=== PATIENT | female | born 1960 | race Caucasian/White ===

== ENCOUNTER 2019-10-28 21:46 | Inpatient (IN) | payer MEDICARE, BC ==
[~2019-10-28] VITALS: Ht 154.9 cm; Wt 67.8 kg
[~2019-10-28 21:46] MED LIST: DESI25TA PO; GABA-826 PO; PROM25TA10 PO; SERT100T PO; TEMA15CA PO
--- NOTE | 2019-10-28 22:11 | NUR ---
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 [phone] neurology paged, Dr. Berman to call ERP Dr. Vance.
--- NOTE | 2019-10-28 22:13 | NUR ---
[employer]: Dr. Berman returned called, speaking with Dr. Vance
[2019-10-28 22:25] LABS: BASOPHILS # (AUTO) 0.03 x10^3/uL (0-0.1); BASOPHILS % (AUTO) 0 % (0-1); EOSINOPHILS # (AUTO) 0.17 x10^3/uL (0-0.4); EOSINOPHILS % (AUTO) 2 % (1-7); LYMPHOCYTES # (AUTO) 1.27 x10^3/uL (1-3.4); LYMPHOCYTES % (AUTO) 12 % (22-44); MD NO; MEAN CORPUSCULAR HEMOGLOBIN 32.3 pg (27.0-34.8); MEAN PLATELET VOLUME 7.2 fL (7.4-10.4); MONOCYTES # (AUTO) 0.46 x10^3/uL (0.2-0.8); MONOCYTES % (AUTO) 5 % (2-9); NEUTROPHILS # (AUTO) 8.34 x10^3/uL (1.8-6.8); NEUTROPHILS % (AUTO) 81 % (42-75); PLATELET COUNT 250 x10^3/uL (130-400); RED BLOOD COUNT 4.51 x10^6/uL (3.82-5.3)
--- NOTE | 2019-10-28 22:30 | NUR ---
Pt presents to ed c/o R sided weakness initiating @2130 this pm. Code neuro initiated via henok barron. at bedside immediately. Multiple points of access gained and pt neuro assessed. Pt mild-moderate weakness of RLE and RUE. No facial drop or slurring noted. NIH of 1 annotated by , alcides neuro rn, and this rn. All monitoring applied. Pt bp elevated. aware. Awaiting neuro consult.
[2019-10-28] MEDS ORDERED: OMNIPAQUE 350 MG/ML, 100ML BOTTLE ONE (22:33)
[2019-10-28 22:34] LABS: INTERNATIONAL NORMALIZED RATIO 0.93 (0.93-1.1); PROTHROMBIN TIME 9.8 Seconds (9.6-11.5)
--- NOTE | 2019-10-28 22:40 | NUR ---
Secondary neuro accomplished and neuro is unchanged at this time.
--- NOTE | 2019-10-28 22:53 | NUR ---
Poor connection issues on telerobot on both devices via neurologist. Neurologist exam delayed due to unfortunate circumstance. aware.
--- NOTE | 2019-10-28 23:02 | NUR ---
CONTRACT MANAGEMENT SPECIALIST: DR. HAYWOOD PAGED PER DR. MARTELL
[2019-10-28] MEDS ORDERED: ALTEPLASE 6 MG in SYRINGE 1 EA IVPush ONE (23:30)
[2019-10-28] MEDS ORDERED: ALTEPLASE IV ONE ×2 (23:30)
[2019-10-28] MEDS ORDERED: ALTEPLASE 51 MG in VIAL 1 EACH IV ONE (23:30)
--- NOTE | 2019-10-28 23:35 | NUR ---
Neurologist states tpa necessary and ERP agrees. 3rd access gained in preparation and tpa prepped. Consent signed and w/ .
--- NOTE | 2019-10-28 23:40 | NUR ---
stated to hold off on tpa until consult from neuro, neuro consult states to give tpa. TPA initiated via ERP guideline and Phi Leong at bedside.
--- NOTE | 2019-10-28 23:57 | NUR ---
RECEIVED BS REPORT FROM HAYLEY RICHARDSON TO ASSUME CARE OF PT. TPA INFUSING PER ORDER. ALL MONITORS IN PLACE. AT BS FOR SUPPORT. ALL SAFETY MEASURES OBSERVED.
[2019-10-29] MEDS ORDERED: PROMETHAZINE 25 MG/ML, 1ML IM PRN
[2019-10-29] MEDS ORDERED: LIDODERM 5% PATCH TD PRN
[2019-10-29] MEDS ORDERED: ONDANSETRON 2MG/ML, 2ML IVPush PRN
--- NOTE | 2019-10-29 00:04 | NUR ---
Pt bedside report to Stephani shoemaker. Neuro exam performed and baseline discussed w/ Brianne shoemaker. Pt care tx. TPA infusing appropriately. R forearm has minimal bleeding due to missed iv stick earlier. aware.
[2019-10-29] MEDS ORDERED: GABA800T PO (00:26)
[2019-10-29] MEDS ORDERED: DISO100C3 PO (00:26)
[2019-10-29] MEDS ORDERED: TEMA15CA6 PO (00:26)
[2019-10-29] MEDS ORDERED: TEMA15CA PO (00:26)
[2019-10-29] MEDS ORDERED: SERT100T PO (00:26)
[2019-10-29] MEDS ORDERED: OXYC10TA6 PO (00:28)
[2019-10-29] MEDS ORDERED: LORA-445 PO (00:31)
[2019-10-29] MEDS: SODIUM CHLORIDE 0.9% 1,000 ML IV SCH ×3 (00:48→23:31)
--- NOTE | 2019-10-29 00:50 | NUR ---
PT. STARTED TO C/O OF NEW ONSET SOB AND DIFFICULTY SWALLOWING. PT. DID PASS SWALLOW EVAL AND IS REQUESTING WATER. PT. TOLERATED SIPS OF WATER WITH NO PROBLEM. EKG WAS DONE AND PRESENTED TO ERP/[facility].
--- NOTE | 2019-10-29 01:00 | NUR ---
ASSISTED PT. TO VOID VIA BED MCGINNIS; BED MCGINNIS OVERFLOWED. PT. ABLE TO ROLL SELF FROM SIDE TO SIDE TO ASSIST WITH BEDDING CHANGE AND CLEANSING. NEW GOWN PLACED. PT. NOTED TO HAVE DRY COUGH; STATES HAS HAD THIS FOR A COUPLE DAY.
--- NOTE | 2019-10-29 01:05 | NUR ---
PT. DENIES SENSATION OF SOB OR DIFFICULTY SWALLOWING NOW. PT. SENSATION TO RIGHT ARM/LEG EQUAL TO THAT OF LEFT ARM/LEG. PT. IS A&O X 4 BUT SLOW TO RESPOND. MED REC WAS COMPLETED WITH PT. PT. IS ABLE TO LIFT RIGHT ARM/LEG OFF BED BUT UNABLE TO HOLD UP FOR MORE THAN 5 SECONDS.
--- NOTE | 2019-10-29 01:14 | NUR ---
REPORT TO HAYLEY MCGILL. PT. TO TRANSPORT. TO FLOOR.
[2019-10-29 01:30] VITALS: BP 168/89
[2019-10-29] MEDS ORDERED: ALTEPLASE 1 MG/ML, 100ML ONE (01:45)
[2019-10-29] MEDS: morphine SULFATE 10 MG/ML, 1ML IVPush PRN ×3 (02:49→16:20)
[2019-10-29 04:00] VITALS: BP 169/81
[2019-10-29] MEDS ORDERED: DESI50TA PO (05:48)
[2019-10-29 05:52] LABS: BASOPHILS # (AUTO) 0.04 x10^3/uL (0-0.1); BASOPHILS % (AUTO) 1 % (0-1); EOSINOPHILS # (AUTO) 0.13 x10^3/uL (0-0.4); EOSINOPHILS % (AUTO) 2 % (1-7); LYMPHOCYTES # (AUTO) 0.75 x10^3/uL (1-3.4); LYMPHOCYTES % (AUTO) 10 % (22-44); MD NO; MEAN CORPUSCULAR HEMOGLOBIN 32.2 pg (27.0-34.8); MEAN CORPUSCULAR HGB CONC 33.9 g/dL (32.4-35.8); MEAN CORPUSCULAR VOLUME 95.1 fL (80-100); MEAN PLATELET VOLUME 7.5 fL (7.4-10.4); MONOCYTES # (AUTO) 0.47 x10^3/uL (0.2-0.8); MONOCYTES % (AUTO) 6 % (2-9); NEUTROPHILS # (AUTO) 6.31 x10^3/uL (1.8-6.8); NEUTROPHILS % (AUTO) 82 % (42-75); PLATELET COUNT 226 x10^3/uL (130-400); RED BLOOD COUNT 4.32 x10^6/uL (3.82-5.3); RED CELL DISTRIBUTION WIDTH 12.8 % (9.6-15.2)
[2019-10-29 06:02] LABS: ALBUMIN 3.7 g/dL (3.4-5.0); ANION GAP 8 mmol/L (5-15); CALCIUM 9.5 mg/dL (8.5-10.1); CHLORIDE 106 mmol/L (98-107)
[2019-10-29 06:05] LABS: ALANINE AMINOTRANSFERASE 21 U/L (12-78); ALKALINE PHOSPHATASE 109 U/L (45-117); BILIRUBIN,TOTAL 0.6 mg/dL (0.2-1.0); CHOL/HDL RATIO 5.9; CHOLESTEROL, TOTAL 234 mg/dL (140-239); CREATININE 0.61 mg/dL (0.55-1.02); HDL CHOL % 17 % (28-40); HDL CHOLESTEROL (DIRECT) 40 mg/dL (40-60); LDL CHOLESTEROL,CALCULATED 157 mg/dL (54-169); LDL/HDL RATIO 3.9 (0.5-3.0); TOTAL PROTEIN 7.2 g/dL (6.4-8.2); TRIGLYCERIDES 186 mg/dL (50-200); VLDL CHOLESTEROL 37 mg/dL (0-25)
[2019-10-29] MEDS ORDERED: LABETALOL 5MG/ML, 20ML IV PRN ×2 (10:30)
[2019-10-29] MEDS: ACETAMINOPHEN 325 MG TABLET PO PRN (15:59)
[2019-10-29 17:59] LABS: RAPID INFLUENZA A Negative (Negative); RAPID INFLUENZA B Negative (Negative)
[2019-10-29] MEDS: ATORVASTATIN 80 MG TABLET PO SCH (21:37)
[2019-10-30] MEDS: ACETAMINOPHEN 325 MG TABLET PO PRN ×2 (02:12→15:10)
[2019-10-30 04:00] VITALS: BP 175/96
[2019-10-30 04:58] LABS: BASOPHILS # (AUTO) 0.02 x10^3/uL (0-0.1); BASOPHILS % (AUTO) 0 % (0-1); EOSINOPHILS # (AUTO) 0.04 x10^3/uL (0-0.4); EOSINOPHILS % (AUTO) 1 % (1-7); LYMPHOCYTES # (AUTO) 0.74 x10^3/uL (1-3.4); LYMPHOCYTES % (AUTO) 10 % (22-44); MD NO; MEAN CORPUSCULAR HEMOGLOBIN 32.4 pg (27.0-34.8); MEAN CORPUSCULAR HGB CONC 33.7 g/dL (32.4-35.8); MEAN CORPUSCULAR VOLUME 96.2 fL (80-100); MEAN PLATELET VOLUME 7.3 fL (7.4-10.4); MONOCYTES % (AUTO) 4 % (2-9); NEUTROPHILS # (AUTO) 6.52 x10^3/uL (1.8-6.8); NEUTROPHILS % (AUTO) 86 % (42-75); PLATELET COUNT 203 x10^3/uL (130-400); RED BLOOD COUNT 4.43 x10^6/uL (3.82-5.3)
[2019-10-30 05:09] LABS: ALANINE AMINOTRANSFERASE 16 U/L (12-78); ALBUMIN 3.4 g/dL (3.4-5.0); ANION GAP 7 mmol/L (5-15); CALCIUM 9.4 mg/dL (8.5-10.1); CHLORIDE 106 mmol/L (98-107); CREATININE 0.54 mg/dL (0.55-1.02)
[2019-10-30 05:11] LABS: ALKALINE PHOSPHATASE 101 U/L (45-117); BILIRUBIN,TOTAL 0.5 mg/dL (0.2-1.0); TOTAL PROTEIN 7.1 g/dL (6.4-8.2)
[2019-10-30] MEDS ORDERED: POTASSIUM CHLORIDE 10% 40 MEQ/30 ML UDC PO ONE (09:00)
[2019-10-30] MEDS: SODIUM CHLORIDE 0.9% 1,000 ML IV SCH (12:17)
[2019-10-30] MEDS: ASPIRIN 81 MG TABLET EC PO SCH (15:11)
[2019-10-30] MEDS ORDERED: OXYcodone IR 5MG TABLET PO PRN (15:30)
[2019-10-30] MEDS ORDERED: ENALAPRILAT 1.25 MG/ML, 1ML IV PRN (15:30)
[2019-10-30] MEDS ORDERED: LABETALOL 5MG/ML, 20ML IVPush PRN (15:30)
[2019-10-30] MEDS ORDERED: GABAPENTIN 300 MG CAPSULE PO PRN (15:30)
[2019-10-30] MEDS ORDERED: PROMETHAZINE 25MG TABLET PO PRN (15:30)
[2019-10-30 17:57] VITALS: BP 135/81
[2019-10-30 19:52] VITALS: BP 157/89
[2019-10-30] MEDS: DESIPRAMINE 50 MG PO SCH (20:46)
[2019-10-30] MEDS: SERTRALINE 100MG TABLET PO SCH (20:46)
[2019-10-30] MEDS: LORazepam 0.5MG TABLET PO SCH (20:46)
[2019-10-30] MEDS: ATORVASTATIN 80 MG TABLET PO SCH (20:46)
[2019-10-31 01:26] VITALS: BP 151/82
[2019-10-31] MEDS: ASPIRIN 81 MG TABLET EC PO SCH (05:12)
[2019-10-31 05:43] LABS: BASOPHILS % (AUTO) 0 % (0-1); EOSINOPHILS # (AUTO) 0.01 x10^3/uL (0-0.4); EOSINOPHILS % (AUTO) 0 % (1-7); LYMPHOCYTES # (AUTO) 1.28 x10^3/uL (1-3.4); LYMPHOCYTES % (AUTO) 10 % (22-44); MD NO; MEAN CORPUSCULAR HEMOGLOBIN 32.3 pg (27.0-34.8); MEAN CORPUSCULAR HGB CONC 33.8 g/dL (32.4-35.8); MEAN CORPUSCULAR VOLUME 95.5 fL (80-100); MEAN PLATELET VOLUME 7.8 fL (7.4-10.4); MONOCYTES # (AUTO) 0.37 x10^3/uL (0.2-0.8); MONOCYTES % (AUTO) 3 % (2-9); NEUTROPHILS # (AUTO) 10.81 x10^3/uL (1.8-6.8); NEUTROPHILS % (AUTO) 87 % (42-75); PLATELET COUNT 193 x10^3/uL (130-400); RED BLOOD COUNT 4.51 x10^6/uL (3.82-5.3); RED CELL DISTRIBUTION WIDTH 13.2 % (9.6-15.2)
[2019-10-31 05:47] LABS: CALCIUM 9.7 mg/dL (8.5-10.1); CHLORIDE 99 mmol/L (98-107)
[2019-10-31 05:53] LABS: ALANINE AMINOTRANSFERASE 26 U/L (12-78); ALBUMIN 3.2 g/dL (3.4-5.0); ALKALINE PHOSPHATASE 104 U/L (45-117); ANION GAP 7 mmol/L (5-15); BILIRUBIN,TOTAL 0.8 mg/dL (0.2-1.0); CREATININE 0.82 mg/dL (0.55-1.02); TOTAL PROTEIN 7.3 g/dL (6.4-8.2)
[2019-10-31] MEDS: SERTRALINE 100MG TABLET PO SCH ×2 (08:48→20:41)
[2019-10-31] MEDS: LORazepam 0.5MG TABLET PO SCH ×2 (08:48→20:41)
[2019-10-31 08:53] VITALS: BP 147/85
[2019-10-31 13:28] VITALS: BP 158/89
[2019-10-31] MEDS: ACETAMINOPHEN 325 MG TABLET PO PRN (18:04)
[2019-10-31 19:08] VITALS: BP 164/90
[2019-10-31] MEDS: DESIPRAMINE 50 MG PO SCH (20:41)
[2019-10-31] MEDS: ATORVASTATIN 80 MG TABLET PO SCH (20:41)
[2019-11-01 01:07] VITALS: BP 157/83
[2019-11-01] MEDS: ASPIRIN 81 MG TABLET EC PO SCH (06:02)
[2019-11-01 06:32] LABS: ANION GAP 4 mmol/L (5-15); CHLORIDE 104 mmol/L (98-107)
[2019-11-01 06:34] LABS: CALCIUM 9.7 mg/dL (8.5-10.1); CREATININE 0.58 mg/dL (0.55-1.02)
[2019-11-01 07:51] VITALS: BP 153/89
[2019-11-01] MEDS: ACETAMINOPHEN 325 MG TABLET PO PRN (07:51)
[2019-11-01] MEDS: SERTRALINE 100MG TABLET PO SCH (07:51)
[2019-11-01] MEDS: LORazepam 0.5MG TABLET PO SCH (07:51)
[2019-11-01 08:00] LABS: MEAN CORPUSCULAR HEMOGLOBIN 32.5 pg (27.0-34.8); MEAN CORPUSCULAR HGB CONC 33.7 g/dL (32.4-35.8); MEAN CORPUSCULAR VOLUME 96.3 fL (80-100); MEAN PLATELET VOLUME 7.9 fL (7.4-10.4); PLATELET COUNT 220 x10^3/uL (130-400); RED BLOOD COUNT 4.43 x10^6/uL (3.82-5.3)
[2019-11-01 08:21] LABS: BASOPHILS # (AUTO) 0.01 x10^3/uL (0-0.1); BASOPHILS % (AUTO) 0 % (0-1); EOSINOPHILS # (AUTO) 0.02 x10^3/uL (0-0.4); EOSINOPHILS % (AUTO) 0 % (1-7); LYMPHOCYTES # (AUTO) 1.15 x10^3/uL (1-3.4); LYMPHOCYTES % (AUTO) 14 % (22-44); MD SCAN; MONOCYTES # (AUTO) 0.44 x10^3/uL (0.2-0.8); MONOCYTES % (AUTO) 5 % (2-9); NEUTROPHILS # (AUTO) 6.65 x10^3/uL (1.8-6.8); NEUTROPHILS % (AUTO) 80 % (42-75)
[2019-11-01] MEDS ORDERED: MAGNESIUM HYDROXIDE 8%, 30ML UDC PO PRN (12:30)
[2019-11-01 12:58] VITALS: BP 153/91
[2019-11-01] MEDS ORDERED: BISACODYL 10 MG SUPP ONE (15:42)
[2019-11-01] MEDS ORDERED: BISACODYL 10 MG SUPP PR PRN (16:00)
[2019-11-01] MEDS ORDERED: POTASSIUM CHLORIDE 20 MEQ TAB.ER.PRT PO ONE (16:30)
[2019-11-01] MEDS ORDERED: ATOR-2 PO (16:46)
[2019-11-01] MEDS ORDERED: BISA10SU4 PR (16:46)
[2019-11-01] MEDS ORDERED: LIDO700A20 TD (16:46)
[2019-11-01] MEDS ORDERED: SENN-193 PO (16:46)
[2019-11-01] MEDS ORDERED: ASPI81TA45 PO (16:46)
[2019-11-01] MEDS ORDERED: GABA300C10 PO (16:46)
[2019-11-01] MEDS ORDERED: MAGN400O7 PO (16:46)
[2019-11-01] MEDS ORDERED: ACET325T26 PO (16:46)
[2019-11-01] MEDS ORDERED: SENNA/DOCUSATE TABLET PO SCH (21:00)
== END 2019-11-01 18:23 | disposition short-term general hospital (02) | DRG 62 ==
LOC: ED 23:36 → EDIP 23:40 → CCU 10-29 01:25 → 4EST 10-30 18:00
PROVIDERS: ADMIT Internal Medicine; ATTEND Internal Medicine
DX: I63.9 Cerebral infarction, unspecified (principal); G81.91 Hemiplegia, unspecified affecting right dominant side; E87.1 Hypo-osmolality and hyponatremia; F13.20 Sedative, hypnotic or anxiolytic dependence, uncomplicated; F11.20 Opioid dependence, uncomplicated; I63.89 Other cerebral infarction; E78.5 Hyperlipidemia, unspecified; E87.6 Hypokalemia; F41.9 Anxiety disorder, unspecified; G89.29 Other chronic pain; R29.810 Facial weakness; R47.81 Slurred speech; W18.39XA Other fall on same level, initial encounter; Y93.89 Activity, other specified; Y92.098 Other place in other non-institutional residence as the place of occurrence of the external cause; Y99.8 Other external cause status; Z91.040 Latex allergy status; Z91.048 Other nonmedicinal substance allergy status; Z87.891 Personal history of nicotine dependence; Z79.899 Other long term (current) drug therapy; R29.707 NIHSS score 7
CPT/HCPCS: 36415; 70450; 70496; 70498; 70551; 71045; 80047; 80048; 80053; 80061; 82962; 83735; 84100; 85025; 85610; 85730; 86923; 87081; 87400; 93005; 93306; 96365; 96375; G0378; J2997; Q9967; 92523-GN; J2270; J7030

== ENCOUNTER 2021-03-02 14:24 | Emergency (ER) | payer BC, MEDICARE ==
[~2021-03-02] VITALS: Ht 154.9 cm; Wt 61.4 kg
[~2021-03-02 14:24] MED LIST changes: +ACET325T26 PO; +ASPI81TA45 PO; +ATOR-2 PO; +BISA10SU4 PR; +DESI50TA PO; +DISO100C3 PO; +GABA300C10 PO; +GABA800T PO; +LIDO700A20 TD; +LORA-445 PO; +MAGN400O7 PO; +OXYC10TA6 PO; +SENN-193 PO; +TEMA15CA6 PO
--- NOTE | 2021-03-02 14:59 | NUR ---
VIANNEY LEUNG WAS IN TO SEE PT. PT PLACED BACK IN LOBBY WITH .
[2021-03-02 15:55] LABS: BASOPHILS % (AUTO) 1 % (0-1); EOSINOPHILS % (AUTO) 1 % (1-7); LYMPHOCYTES % (AUTO) 33 % (22-44); MEAN CORPUSCULAR HEMOGLOBIN 32.6 pg (27.0-34.8); MEAN CORPUSCULAR HGB CONC 35.7 g/dL (32.4-35.8); MEAN PLATELET VOLUME 7.4 fL (7.4-10.4); MONOCYTES % (AUTO) 6 % (2-9); NEUTROPHILS % (AUTO) 59 % (42-75); PLATELET COUNT 336 x10^3/uL (130-400); RED BLOOD COUNT 4.53 x10^6/uL (3.82-5.3); RED CELL DISTRIBUTION WIDTH 13.1 % (9.6-15.2)
[2021-03-02 15:57] LABS: MD NO
[2021-03-02 16:07] LABS: ALBUMIN 3.7 g/dL (3.4-5.0); ANION GAP 6 mmol/L (5-15); CALCIUM 10.1 mg/dL (8.5-10.1); CHLORIDE 98 mmol/L (98-107)
[2021-03-02 16:11] LABS: ALANINE AMINOTRANSFERASE 21 U/L (12-78); ALKALINE PHOSPHATASE 84 U/L (45-117); BILIRUBIN,TOTAL 0.3 mg/dL (0.2-1.0); CREATININE 0.93 mg/dL (0.55-1.02); TOTAL PROTEIN 7.4 g/dL (6.4-8.2)
[2021-03-02] MEDS ORDERED: METOCLOPRAMIDE 5 MG/ML, 2ML ONE (16:58)
[2021-03-02] MEDS ORDERED: DIPHENHYDRAMINE 50 MG/ML, 1ML ONE (16:58)
[2021-03-02] MEDS ORDERED: DIPHENHYDRAMINE 50 MG/ML, 1ML IVPush ONE (17:00)
[2021-03-02] MEDS ORDERED: METOCLOPRAMIDE 5 MG/ML, 2ML IVPush ONE (17:00)
[2021-03-02 17:22] LABS: MICROSCOPIC NOT IND
--- NOTE | 2021-03-02 17:30 | NUR ---
TASK RN: PATIENT PLACED ON ELECTRICIAN MAINTENANCE THEN PIV PLACED THEN MEDICATED PER EMAR FOR HEADACHE/ABD PAIN AT 04/17
--- NOTE | 2021-03-02 17:39 | NUR ---
TASK RN: HEADACHE TOTALLY IMPROVED, ABD CRAMPING MOSTLY IMPROVED (FROM 7/10 TO 2/10)
--- NOTE | 2021-03-02 17:40 | NUR ---
TASK RN: TO CT SCAN
[2021-03-02] MEDS ORDERED: OMNIPAQUE 350 MG/ML, 100ML BOTTLE ONE (18:02)
[2021-03-02] MEDS ORDERED: morphine SULFATE 10 MG/ML, 1ML IVPush ONE (18:30)
[2021-03-02] MEDS ORDERED: MORPHINE SULFATE 4 MG/ML, 1ML ONE (18:31)
[2021-03-02 19:05] VITALS: BP 145/81
== END 2021-03-02 19:56 | disposition home or self-care (01) ==
LOC: ED 16:36
DX: A09 Infectious gastroenteritis and colitis, unspecified (principal); R10.32 Left lower quadrant pain; R11.2 Nausea with vomiting, unspecified; R51.9 Headache, unspecified; I10 Essential (primary) hypertension; Z86.73 Personal history of transient ischemic attack (TIA), and cerebral infarction without residual deficits
CPT/HCPCS: 36415; 74177; 80053; 81003; 83690; 85025; 96374; 96375; 99285; J1200; J2270; J2765; Q9967

== ENCOUNTER 2021-04-16 06:48 | Outpatient (CLI) | payer BC, MEDICARE | END 2021-04-16 23:59 | disposition home or self-care (01) | LOC: RAD 06:48 | PROVIDERS: ATTEND Physician Assistant | DX: R11.2 Nausea with vomiting, unspecified (principal); R63.4 Abnormal weight loss; R12 Heartburn; R93.89 Abnormal findings on diagnostic imaging of other specified body structures; K59.00 Constipation, unspecified; R10.30 Lower abdominal pain, unspecified; G81.90 Hemiplegia, unspecified affecting unspecified side; I63.9 Cerebral infarction, unspecified; R85.0 Abnormal level of enzymes in specimens from digestive organs and abdominal cavity | CPT/HCPCS: 74240 ==

== ENCOUNTER 2021-04-19 13:49 | Inpatient (IN) | payer BC, MEDICARE ==
[~2021-04-19] VITALS: Ht 154.9 cm; Wt 59.2 kg
[2021-04-19] MEDS ORDERED: PANT40GR PO (14:18)
[2021-04-19] MEDS ORDERED: LOSA100T14 PO (14:18)
[2021-04-19] MEDS ORDERED: TEMA15CA PO (14:18)
[2021-04-19] MEDS ORDERED: ASPI325T17 PO (14:18)
[2021-04-19] MEDS ORDERED: IBUP200C75 PO (14:18)
[2021-04-19] MEDS ORDERED: [UNRECOGNIZED DRUG - CODE] PO (14:18)
[2021-04-19] MEDS ORDERED: HYDROCHLOROTH12.5 MG PO (14:18)
[2021-04-19] MEDS ORDERED: SERT100T32 PO (14:18)
--- NOTE | 2021-04-19 14:20 | NUR ---
PT BIBA FOR C/O LOWER ABD PAIN X2 MONTHS, PT'S AT BEDSIDE REPORTS PAIN HAS NOT BEEN CONTROLLED, SEEN BY GI AND DIAGNOSED WITH ULCER. PT PLACED ON ALL MONITORS, FALL PRECAUTIONS IN PLACE. CALL LIGHT PLACED WITHIN REACH.
[2021-04-19] MEDS ORDERED: MORPHINE SULFATE 4 MG/ML, 1ML ONE (14:51)
[2021-04-19] MEDS ORDERED: DIPHENHYDRAMINE 50 MG/ML, 1ML ONE (14:51)
[2021-04-19] MEDS ORDERED: METOCLOPRAMIDE 5 MG/ML, 2ML ONE (14:51)
[2021-04-19] MEDS ORDERED: MORPHINE SULFATE 4 MG/ML, 1ML IVPush PRN (15:00)
[2021-04-19] MEDS ORDERED: SODIUM CHLORIDE FLUSH 10ML SYR IVF ONE (15:00)
[2021-04-19] MEDS ORDERED: DIPHENHYDRAMINE 50 MG/ML, 1ML IVPush ONE (15:00)
[2021-04-19] MEDS ORDERED: SODIUM CHLORIDE 0.9% 1,000ML IVBOLUS ONE (15:00)
[2021-04-19] MEDS ORDERED: METOCLOPRAMIDE 5 MG/ML, 2ML IVPush ONE (15:00)
[2021-04-19 15:16] LABS: BASOPHILS % (AUTO) 1 % (0-1); EOSINOPHILS % (AUTO) 1 % (1-7); LYMPHOCYTES % (AUTO) 43 % (22-44); MEAN CORPUSCULAR HEMOGLOBIN 32.7 pg (27.0-34.8); MEAN CORPUSCULAR HGB CONC 36.2 g/dL (32.4-35.8); MEAN PLATELET VOLUME 6.6 fL (7.4-10.4); MONOCYTES % (AUTO) 8 % (2-9); NEUTROPHILS % (AUTO) 47 % (42-75); PLATELET COUNT 346 x10^3/uL (130-400); RED BLOOD COUNT 4.28 x10^6/uL (3.82-5.3); RED CELL DISTRIBUTION WIDTH 12.6 % (9.6-15.2)
[2021-04-19 15:26] LABS: ALANINE AMINOTRANSFERASE 22 U/L (12-78); ALBUMIN 4.1 g/dL (3.4-5.0); ANION GAP 10 mmol/L (5-15); CALCIUM 11.1 mg/dL (8.5-10.1); CHLORIDE 93 mmol/L (98-107); CREATININE 1.16 mg/dL (0.55-1.02)
[2021-04-19 15:28] LABS: ALKALINE PHOSPHATASE 90 U/L (45-117); BILIRUBIN,TOTAL 0.8 mg/dL (0.2-1.0); TOTAL PROTEIN 7.9 g/dL (6.4-8.2)
[2021-04-19] MEDS ORDERED: POTASSIUM CHLORIDE 40 MEQ in SODIUM CHLORIDE 0.9% 500 ML IV ONE (16:00)
--- NOTE | 2021-04-19 18:42 | NUR ---
REPORT TO ERIC HARDY.
[2021-04-19] MEDS ORDERED: POTASSIUM CHLORIDE 20 MEQ TAB.ER.PRT PO ONE (19:00)
[2021-04-19] MEDS ORDERED: LABETALOL 5MG/ML, 20ML IVPush PRN (19:00)
[2021-04-19] MEDS ORDERED: ENOXAPARIN 40 MG/0.4 ML SQ SCH (19:00)
[2021-04-19] MEDS ORDERED: ACETAMINOPHEN 325 MG TABLET PO PRN (19:00)
[2021-04-19] MEDS ORDERED: ONDANSETRON 2MG/ML, 2ML IVPush PRN (19:00)
[2021-04-19] MEDS ORDERED: METOCLOPRAMIDE 5 MG/ML, 2ML IVPush PRN (19:00)
[2021-04-19 19:29] VITALS: BP 130/85
[2021-04-19 19:55] LABS: ANION GAP 4 mmol/L (5-15); CHLORIDE 97 mmol/L (98-107); CREATININE 0.98 mg/dL (0.55-1.02)
[2021-04-19] MEDS: DRONABINOL 5 MG CAPSULE PO SCH (20:13)
[2021-04-19] MEDS ORDERED: MELATONIN 5 MG TABLET PO PRN (21:00)
[2021-04-19] MEDS ORDERED: FAMOTIDINE 20 MG/2 ML IVPush SCH (21:00)
[2021-04-19 21:35] VITALS: BP 145/64
[2021-04-19] MEDS: HYDROmorphone 2 MG/ML, 1ML IVPush PRN ×2 (21:49→22:20)
[2021-04-19 22:20] VITALS: BP 150/87
[2021-04-19 22:41] VITALS: BP 147/82
[2021-04-19] MEDS: POTASSIUM CHLORIDE 20 MEQ in LACTATED RINGERS 1,000 ML IV SCH (22:42)
[2021-04-19 22:58] LABS: ANION GAP 7 mmol/L (5-15); CALCIUM 10.4 mg/dL (8.5-10.1); CHLORIDE 99 mmol/L (98-107); CREATININE 0.97 mg/dL (0.55-1.02)
[2021-04-20 00:41] VITALS: BP 145/93
[2021-04-20] MEDS: HYDROmorphone 2 MG/ML, 1ML IVPush PRN (01:20)
[2021-04-20 02:31] LABS: BASOPHILS % (AUTO) 1 % (0-1); EOSINOPHILS % (AUTO) 1 % (1-7); LYMPHOCYTES % (AUTO) 37 % (22-44); MEAN CORPUSCULAR HEMOGLOBIN 32.1 pg (27.0-34.8); MEAN CORPUSCULAR HGB CONC 34.8 g/dL (32.4-35.8); MEAN PLATELET VOLUME 6.7 fL (7.4-10.4); MONOCYTES % (AUTO) 7 % (2-9); NEUTROPHILS % (AUTO) 54 % (42-75); PLATELET COUNT 336 x10^3/uL (130-400); RED BLOOD COUNT 4.36 x10^6/uL (3.82-5.3); RED CELL DISTRIBUTION WIDTH 12.4 % (9.6-15.2)
[2021-04-20 02:43] LABS: ANION GAP 6 mmol/L (5-15); CALCIUM 10.3 mg/dL (8.5-10.1); CHLORIDE 100 mmol/L (98-107)
[2021-04-20 02:44] LABS: CREATININE 0.99 mg/dL (0.55-1.02)
[2021-04-20 07:06] LABS: ANION GAP 3 mmol/L (5-15); CHLORIDE 104 mmol/L (98-107); CREATININE 1.15 mg/dL (0.55-1.02)
[2021-04-20 07:22] VITALS: BP 105/67
[2021-04-20 07:57] LABS: MICROSCOPIC NOT IND
[2021-04-20] MEDS: POTASSIUM CHLORIDE 20 MEQ in LACTATED RINGERS 1,000 ML IV SCH ×2 (08:20→15:35)
[2021-04-20] MEDS: DRONABINOL 5 MG CAPSULE PO SCH (08:20)
[2021-04-20 14:19] VITALS: BP 131/81
== END 2021-04-20 20:02 | disposition home or self-care (01) | DRG 683 ==
LOC: ED 17:35 → OBSVTOIN 18:12 → INTOOBSV 18:12 → EDIP 18:12 → 4WST 19:12
PROVIDERS: ADMIT Internal Medicine; ATTEND Hospitalist
DX: N17.9 Acute kidney failure, unspecified (principal); E87.1 Hypo-osmolality and hyponatremia; R10.9 Unspecified abdominal pain; E86.1 Hypovolemia; E87.6 Hypokalemia; F12.90 Cannabis use, unspecified, uncomplicated; F19.10 Other psychoactive substance abuse, uncomplicated; G89.29 Other chronic pain; Z86.73 Personal history of transient ischemic attack (TIA), and cerebral infarction without residual deficits; G43.909 Migraine, unspecified, not intractable, without status migrainosus
CPT/HCPCS: 36415; 80048; 80053; 81003; 83690; 83735; 85025; 93005; G0378; J1170; J1650; J2405; J3480; Q0167; J1200; J2270; J2765; J7030; J7040; J7120

== ENCOUNTER 2021-06-03 06:39 | Inpatient (IN) | payer MEDICARE, BC ==
[~2021-06-03] VITALS: Ht 152.4 cm; Wt 61.0 kg
[~2021-06-03 06:39] MED LIST changes: +ASPI325T17 PO; +HYDROCHLOROTH12.5 MG PO; +IBUP200C75 PO; +LOSA100T14 PO; +PANT40GR PO; +SERT100T32 PO; +[UNRECOGNIZED DRUG - CODE] PO
--- NOTE | 2021-06-03 07:00 | NUR ---
REPORT FROM HAYLEY ODONNELL
[2021-06-03 07:10] LABS: BASOPHILS % (AUTO) 1 % (0-1); EOSINOPHILS % (AUTO) 0 % (1-7); LYMPHOCYTES % (AUTO) 22 % (22-44); MEAN CORPUSCULAR HEMOGLOBIN 32.4 pg (27.0-34.8); MEAN CORPUSCULAR HGB CONC 35.3 g/dL (32.4-35.8); MEAN PLATELET VOLUME 6.8 fL (7.4-10.4); MONOCYTES % (AUTO) 7 % (2-9); NEUTROPHILS % (AUTO) 71 % (42-75); PLATELET COUNT 353 x10^3/uL (130-400); RED BLOOD COUNT 4.61 x10^6/uL (3.82-5.3); RED CELL DISTRIBUTION WIDTH 12.6 % (9.6-15.2)
[2021-06-03 07:22] LABS: ALANINE AMINOTRANSFERASE 23 U/L (12-78); ALBUMIN 4.2 g/dL (3.4-5.0); ANION GAP 11 mmol/L (5-15); CALCIUM 10.7 mg/dL (8.5-10.1); CHLORIDE 101 mmol/L (98-107); CREATININE 0.71 mg/dL (0.55-1.02)
--- NOTE | 2021-06-03 07:23 | NUR ---
PT OFF THE FLOOR TO CT
[2021-06-03 07:24] LABS: ALKALINE PHOSPHATASE 111 U/L (45-117); BILIRUBIN,TOTAL 0.5 mg/dL (0.2-1.0); TOTAL PROTEIN 8.6 g/dL (6.4-8.2)
--- NOTE | 2021-06-03 07:31 | NUR ---
PT BACK FROM CT. PT ALERT AND RESPONDING TO RN. PT NOT RESPONDING APPROPRAITLY TO QUESTIONS. WHEN ASKED IF SHE WAS COMFORTABLE, PT STATES"EXACTLY". PT SPEAKING BUT SENTENCES ARE NOT APPROPRIATE FOR SETTING AND DO NOT MAKE SENSE TO THE STATEMENTS OR QUESTIONS DIRECTED TO HER. NAD. VS REASSESSED.
[2021-06-03 07:35] LABS: MICROSCOPIC AUTO
--- NOTE | 2021-06-03 08:25 | NUR ---
PT RESTING ON ED GURNEY WITH EYES CLOSED. NAD. VSS. RAILS UP AND CALL LIGHT WITHIN REACH. WAITING TO GO FOR MRI.
--- NOTE | 2021-06-03 09:20 | NUR ---
PT SON AND BEDSIDE. SON AND ANTAGONISTIC TOWARDS EACH OTHER. STATES HE HAS POA BUT NO DOCUMENTS ARE PRESENT. 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
--- NOTE | 2021-06-03 09:56 | NUR ---
MRI FORM COMPLETED BY PT GENEVA SALL AND FAXED TO MRI. STATED THAT HE HAS HIS POA FORM ON THE WAY.
--- NOTE | 2021-06-03 10:04 | NUR ---
PT OFF THE FLOOR TO MRI
--- NOTE | 2021-06-03 11:00 | NUR ---
SMELTER OPERATOR BEDSIDE TO EVALUATE PT AND SITUATION.
--- NOTE | 2021-06-03 11:00 | NUR ---
PT TRYING TO GET OUT OF BED. PT PLACED BACK IN BED. CALL LIGHT WITHIN REACH. RAILS UP. CERTIFIED ORTHOTIST EVALUATING.
[2021-06-03] MEDS ORDERED: LOSARTAN 100 MG TAB PO ONE (11:30)
--- NOTE | 2021-06-03 11:30 | NUR ---
PT'S BEDSIDE. PT'S AGITATION REDUCED. PT'S SPEECH CLEAR, BUT RESPONSES NOT APPROPRIATE.
--- NOTE | 2021-06-03 11:49 | NUR ---
MEDICATION SLIP SENT FOR MEDICATION (KRISH)
--- NOTE | 2021-06-03 12:17 | NUR ---
PT MEDICATED PER DEC. PT C/O ABD PAIN. PER PT'S PT HAS BEEN HAVING ABD PAIN FREQUENTLY AND SEEING A SCIENTIST IMMUNOLOGY DR TELLO BUT NO DX YET.
[2021-06-03 12:21] LABS: SALICYLATE LEVEL 2.8 mg/dL (2.8-20.0)
--- NOTE | 2021-06-03 13:07 | NUR ---
REPORT FROM HAYLEY NICHOLAS FOR TRANSFER OF PATIENT CARE.
--- NOTE | 2021-06-03 13:38 | NUR ---
ATTEMPTED TO CALL REPORT.
--- NOTE | 2021-06-03 13:51 | NUR ---
ATTEMPTED TO CALL REPORT, SECOND TIME.
--- NOTE | 2021-06-03 14:06 | NUR ---
REPORT TO HAYLEY COVARRUBIAS FOR TRANSFER OF PATIENT CARE.
--- NOTE | 2021-06-03 14:39 | NUR ---
PATIENT TRANSFERRED IN STABLE CONDITION TO [facility] WITH BREAD ICER. ALL PATIENT BELONGINGS TAKEN TO FLOOR WITH PATIENT.
[2021-06-03 15:11] VITALS: BP 175/109
[2021-06-03] MEDS ORDERED: OXYcodone IR 5MG TABLET PO PRN (17:30)
[2021-06-03] MEDS: GABAPENTIN 300 MG CAPSULE PO SCH ×2 (17:33→20:55)
[2021-06-03] MEDS: LORazepam 1MG TABLET PO SCH ×2 (17:33→20:55)
[2021-06-03] MEDS ORDERED: hydrALAzine 20 MG/ML, 1ML IVPush PRN (18:00)
[2021-06-03] MEDS ORDERED: ONDANSETRON 2MG/ML, 2ML IVPush PRN (18:00)
[2021-06-03] MEDS ORDERED: ONDANSETRON ODT 4 MG PO PRN (18:00)
[2021-06-03] MEDS ORDERED: POLYETHYLENE GLYCOL 17 GM PACKET PO PRN (18:00)
[2021-06-03] MEDS ORDERED: BISACODYL 10 MG SUPP PR PRN (18:00)
[2021-06-03] MEDS ORDERED: DOCUSATE 100 MG CAPSULE PO PRN (18:00)
[2021-06-03] MEDS ORDERED: LACTATED RINGERS 1,000 ML IV SCH (18:00)
[2021-06-03 18:15] VITALS: BP 171/101
[2021-06-03] MEDS: HEPARIN 5,000 UNITS/ML, 1ML SQ SCH (18:27)
[2021-06-03] MEDS: AMLODIPINE 5 MG TABLET PO SCH (18:27)
[2021-06-03] MEDS ORDERED: POTASSIUM CHLORIDE 40 MEQ in SODIUM CHLORIDE 0.9% 500 ML IV ONE (18:30)
[2021-06-03 19:25] VITALS: BP 134/85
[2021-06-03] MEDS: TEMAZEPAM 15 MG CAPSULE PO SCH (20:55)
[2021-06-03] MEDS: SERTRALINE 100MG TABLET PO SCH (20:55)
[2021-06-03] MEDS: PANTOPRAZOLE 40MG TABLET PO SCH (20:55)
[2021-06-03] MEDS ORDERED: DESIPRAMINE 50 MG PO SCH (21:00)
[2021-06-04 01:00] VITALS: BP 115/73
[2021-06-04] MEDS: ACETAMINOPHEN 325 MG TABLET PO PRN ×2 (01:15→12:23)
[2021-06-04] MEDS: HEPARIN 5,000 UNITS/ML, 1ML SQ SCH ×3 (01:15→18:30)
[2021-06-04 06:08] LABS: BASOPHILS % (AUTO) 1 % (0-1); EOSINOPHILS % (AUTO) 2 % (1-7); LYMPHOCYTES % (AUTO) 39 % (22-44); MEAN CORPUSCULAR HEMOGLOBIN 32.6 pg (27.0-34.8); MEAN CORPUSCULAR HGB CONC 34.6 g/dL (32.4-35.8); MEAN PLATELET VOLUME 6.9 fL (7.4-10.4); MONOCYTES % (AUTO) 8 % (2-9); NEUTROPHILS % (AUTO) 50 % (42-75); PLATELET COUNT 329 x10^3/uL (130-400); RED BLOOD COUNT 3.85 x10^6/uL (3.82-5.3); RED CELL DISTRIBUTION WIDTH 12.6 % (9.6-15.2)
[2021-06-04 06:19] LABS: CHLORIDE 103 mmol/L (98-107)
[2021-06-04 06:31] LABS: ALANINE AMINOTRANSFERASE 20 U/L (12-78); ALKALINE PHOSPHATASE 82 U/L (45-117); ANION GAP 5 mmol/L (5-15); BILIRUBIN,TOTAL 0.6 mg/dL (0.2-1.0); CALCIUM 9.5 mg/dL (8.5-10.1); CHOL/HDL RATIO 4.3; CHOLESTEROL, TOTAL 189 mg/dL (140-239); CREATININE 0.74 mg/dL (0.55-1.02); HDL CHOL % 23 % (28-40); HDL CHOLESTEROL (DIRECT) 44 mg/dL (40-60); LDL CHOLESTEROL,CALCULATED 109 mg/dL (54-169); LDL/HDL RATIO 2.5 (0.5-3.0); TOTAL PROTEIN 6.8 g/dL (6.4-8.2); TRIGLYCERIDES 178 mg/dL (50-200); VLDL CHOLESTEROL 36 mg/dL (0-25)
[2021-06-04 06:41] VITALS: BP 114/70
[2021-06-04] MEDS ORDERED: DESIPRAMINE 50 MG PO SCH (09:00)
[2021-06-04] MEDS: PANTOPRAZOLE 40MG TABLET PO SCH ×2 (09:26→20:20)
[2021-06-04] MEDS: LORazepam 1MG TABLET PO SCH ×2 (09:26→20:20)
[2021-06-04] MEDS: GABAPENTIN 300 MG CAPSULE PO SCH ×3 (09:26→20:20)
[2021-06-04] MEDS: AMLODIPINE 5 MG TABLET PO SCH (09:26)
[2021-06-04] MEDS: SERTRALINE 100MG TABLET PO SCH ×2 (09:26→20:19)
[2021-06-04] MEDS ORDERED: DESIPRAMINE MC SCH (10:00)
[2021-06-04 12:16] VITALS: BP 129/80
[2021-06-04 13:25] VITALS: BP 134/78
[2021-06-04] MEDS: TEMAZEPAM 15 MG CAPSULE PO SCH (20:20)
[2021-06-04 21:00] VITALS: BP 139/76
[2021-06-05 00:47] VITALS: BP 154/82
[2021-06-05] MEDS: ACETAMINOPHEN 325 MG TABLET PO PRN ×2 (00:50→08:47)
[2021-06-05] MEDS: HEPARIN 5,000 UNITS/ML, 1ML SQ SCH ×3 (02:16→09:03)
[2021-06-05 06:54] LABS: BASOPHILS % (AUTO) 1 % (0-1); EOSINOPHILS % (AUTO) 3 % (1-7); LYMPHOCYTES % (AUTO) 45 % (22-44); MEAN CORPUSCULAR HEMOGLOBIN 32.7 pg (27.0-34.8); MEAN CORPUSCULAR HGB CONC 34.5 g/dL (32.4-35.8); MEAN PLATELET VOLUME 7.1 fL (7.4-10.4); MONOCYTES % (AUTO) 7 % (2-9); NEUTROPHILS % (AUTO) 44 % (42-75); PLATELET COUNT 334 x10^3/uL (130-400); RED BLOOD COUNT 4.31 x10^6/uL (3.82-5.3); RED CELL DISTRIBUTION WIDTH 12.8 % (9.6-15.2)
[2021-06-05 07:00] LABS: CHLORIDE 106 mmol/L (98-107)
[2021-06-05 07:02] LABS: ANION GAP 6 mmol/L (5-15); CALCIUM 10.2 mg/dL (8.5-10.1); CREATININE 0.86 mg/dL (0.55-1.02)
[2021-06-05 07:36] VITALS: BP 147/83
[2021-06-05] MEDS: GABAPENTIN 300 MG CAPSULE PO SCH ×2 (08:45→16:34)
[2021-06-05] MEDS: LORazepam 1MG TABLET PO SCH (08:45)
[2021-06-05] MEDS: PANTOPRAZOLE 40MG TABLET PO SCH (08:45)
[2021-06-05] MEDS: SERTRALINE 100MG TABLET PO SCH (08:45)
[2021-06-05] MEDS: AMLODIPINE 5 MG TABLET PO SCH (08:46)
[2021-06-05 12:50] VITALS: BP 154/89
[2021-06-05] MEDS ORDERED: AMLO-150 PO (15:04)
[2021-06-05] MEDS ORDERED: DOCU-131 PO (15:04)
[2021-06-05] MEDS ORDERED: LORA-446 PO (15:04)
[2021-06-05] MEDS ORDERED: POLY17PO5 PO (15:04)
[2021-06-05] MEDS ORDERED: ONDA4TAB13 PO (15:04)
[2021-06-05] MEDS ORDERED: OXYC5TAB98 PO (15:04)
[2021-06-05] MEDS ORDERED: TEMA15CA6 PO (15:04)
[2021-06-05] MEDS ORDERED: GABA300C PO (15:04)
[2021-06-05] MEDS ORDERED: ATOR40TA78 PO (15:08)
[2021-06-05] MEDS ORDERED: LOSA50TA2 PO (15:10)
== END 2021-06-05 18:11 | disposition home health service (06) | DRG 92 ==
LOC: ED 07:10 → EDIP 11:24 → 4EST 14:44
PROVIDERS: ADMIT Hospitalist; ATTEND Internal Medicine
DX: G92 Toxic encephalopathy (principal); F05 Delirium due to known physiological condition; G90.59 Complex regional pain syndrome I of other specified site; I69.351 Hemiplegia and hemiparesis following cerebral infarction affecting right dominant side; T42.6X5A Adverse effect of other antiepileptic and sedative-hypnotic drugs, initial encounter; E78.5 Hyperlipidemia, unspecified; E86.0 Dehydration; E87.6 Hypokalemia; F12.90 Cannabis use, unspecified, uncomplicated; F13.90 Sedative, hypnotic, or anxiolytic use, unspecified, uncomplicated; F32.9 Major depressive disorder, single episode, unspecified; F41.9 Anxiety disorder, unspecified; I10 Essential (primary) hypertension; Z79.01 Long term (current) use of anticoagulants; Z79.899 Other long term (current) drug therapy; Z80.49 Family history of malignant neoplasm of other genital organs; Z82.3 Family history of stroke; Z85.41 Personal history of malignant neoplasm of cervix uteri; Z99.3 Dependence on wheelchair; Z91.040 Latex allergy status; Y92.89 Other specified places as the place of occurrence of the external cause
CPT/HCPCS: 36415; 70450; 70551; 71045; 80048; 80053; 80061; 80320; 80329; 81001; 82140; 83036; 83735; 84100; 84443; 85025; 87040; 93005; 99291; G0378; J1644; J2405; J3480; 92523-GN; G0480; J7040; J7120